=== PATIENT | female | born 1975 | race Caucasian/White ===

== ENCOUNTER 2019-02-14 08:30 | Day surgery (SDC) | payer MEDICAID ==
[2019-02-10 10:02] LABS: BASOPHILS 0.5 % (0-2); EOSINOPHILS 1.7 % (0-7); HEMATOCRIT 37.1 % (36.0-48.0); HEMOGLOBIN 12.4 g/dL (12-16); IMMATURE GRANULOCYTES 0.2 % (0-5); LYMPHOCYTES 26.6 % (15-50); MCH 29.6 pg (26.0-34.0); MCHC 33.4 g/dL (31.0-37.0); MCV 88.5 fL (80.0-100.0); MEAN PLATELET VOLUME 8.8 fL (7.4-10.4); MONOCYTES 15.4 % (2-11); NEUTROPHILS 55.6 % (40-80); PLATELET COUNT 190 10x3/uL (130-400); RBC 4.19 10x6/uL (4.00-5.40); RDW 14.7 % (11.5-14.5)
[~2019-02-14] VITALS: Ht 172.7 cm; Wt 76.2 kg
[~2019-02-14 08:30] MED LIST: IBUPROFEN800 MG PO; PRENAVITE1 TAB PO
[2019-02-14 09:18] VITALS: BP 123/78; Ht 172.7 cm; Wt 76.2 kg
[2019-02-14 09:39] LABS: HCG URINE NEGATIVE (NEGATIVE)
--- NOTE | 2019-02-14 15:40 | NUR ---
PT DC INSTRUCTIONS REVIEWED AT THIS TIME, PT VERBALIZES UNDERSTANDING AND AGREES. PT IV REMOVED AT THIS TIME, INTACT, NO REDNESS OR SWELLING NOTED AT SITE.
--- NOTE | 2019-02-14 15:45 | NUR ---
PT LEAVING OPS AT THIS TIME VIA WC, NAD NOTED.
--- NOTE | 2019-02-15 07:23 | OP ---
PATIENT NAME: ANKUR GAINES MEDICAL RECORD: [id number] :73 LOCATION:[facility] ADMISSION DATE: SURGEON: HARISH JAIME MD DATE OF OPERATION: 02/14/2019 PREOPERATIVE DIAGNOSIS: Undesired fertility. POSTOPERATIVE DIAGNOSIS: Undesired fertility. PROCEDURE: Bilateral salpingectomy. SURGEON: Harish Jaime MD RUBY DEVELOPER: Jr Teran ANESTHESIOLOGIST: Kushal Choi MD ANESTHETIC: General. FINDINGS: Uterus, tubes, and ovaries unremarkable. SPECIMENS REMOVED: Tubes bilaterally. SPECIMEN DISPOSITION: All specimens to pathology. ESTIMATED BLOOD LOSS: Minimal. FLUIDS: 700 cc of lactated Ringer's. URINE OUTPUT: Quantity sufficient void prior to this procedure. COMPLICATIONS: None. DRAINS: None. INDICATIONS: The patient is a 43-year-old multiparous female with undesired fertility. The patient has been counseled for decreased ovarian cancer risk. The patient desires salpingectomy. Risks, benefits, and limitations of the procedure have been discussed. DESCRIPTION OF PROCEDURE: After informed consent was assured, the patient was taken to the operating room, where anesthetic was obtained without difficulty. The patient was now prepped and draped. Marcaine was used to inject the infraumbilical midline site and the right lower quadrant site. All sites were incised and trocars were inserted. Pneumoperitoneum has been developed. With the patient in Trendelenburg position, the right tube was elevated. Thunderbeat coagulation cutter was used to remove the right tube from its attachments to the adnexa. This was cross cut at the cornual region. The tube was removed from the 10-mm trocar. Attention was directed to the contralateral side, where the left tube was elevated from the midline again; and through the right lower quadrant, the coagulation cutter was used to remove the tube from its attachments to the adnexa. Again, this tube was removed from the midline lower port. The pneumoperitoneum was released after inspection of the operative field and found it to be hemostatic. The accessory trocars were removed under visualization. Primary trocar was now removed and all sites were closed with a OPERATIVE REPORT [id number] ANKUR GAINES subcuticular stitch and Dermabond applied. Sponge, lap, and needle counts were correct times 2. TRANSINT:[id number] Voice Confirmation ID: [id number] DOCUMENT ID: [id number] HARISH JAIME MD at 0723 CC: [id number] DICTATION DATE: 02/14/19 1343 [place] HAND: 02/14/19 1424 [facility] 02/14/19 [id number] [place] [address]
== END 2019-02-14 15:45 | disposition home or self-care (01) ==
LOC: D.OPS 08:30 → D.PAN 08:40 → D.OPS 10:30 → D.PAN 11:00 → D.OPS 12:20 → D.PAN 12:20 → D.OPS 15:45
PROVIDERS: ATTEND Obstetrics & Gynecology
DX: Z30.2 Encounter for sterilization (principal); Z01.812 Encounter for preprocedural laboratory examination